=== PATIENT | female | born 1985 | race Caucasian/White ===

== ENCOUNTER 2017-06-08 19:03 | Inpatient (IN) ==
[2017-06-08] MEDS ORDERED: CARBOPROST 250 MCG/ML INJECTION IM PRN (19:15)
[2017-06-08] MEDS ORDERED: MAG-AL + SIM ORAL LIQUID 30ml PO PRN (19:15)
[2017-06-08] MEDS ORDERED: METHYLERGONOVINE 0.2 MG/ML INJECTION IM PRN (19:15)
[2017-06-08] MEDS ORDERED: ACETAMINOPHEN 500 MG TABLET PO PRN (19:15)
[2017-06-08] MEDS ORDERED: DINOPROSTONE 10 MG VAGINAL INSERT VG ONE (19:18)
[2017-06-08] MEDS ORDERED: TERBUTALINE 1 MG/ML VIAL SQ PRN (19:18)
[2017-06-08] MEDS ORDERED: ZOLPIDEM 5 MG TABLET PO PRN (19:34)
--- NOTE | 2017-06-08 19:39 | OB/GYN Progress Note ---
- Pain Control Pain control: Tolerating well - Pelvic Exam Dilation (cm): 1 Effacement (%): 50 station: -3 Amniotic membrane status: Intact - Contractions Monitor mode: None - Status status: Category l - Assessment and Plan Plan: continuous present management (Fb placed to for cervical ripening, Pitocin at 5 am, Q 12 PIH lab. )
[2017-06-08 20:25] VITALS: BMI 29.4
[2017-06-09] MEDS ORDERED: NALBUPHINE 10 MG/ML INJECTION IVP PRN (00:44)
[2017-06-09] MEDS: CALCIUM CARBONATE Chewable 500mg TABLET PO PRN ×2 (04:47→11:15)
[2017-06-09] MEDS ORDERED: OXYTOCIN DRIP 30 UNIT/500 ML ML IV PRN (05:13)
[2017-06-09] MEDS: D5LR 1,000 ML IV PRN ×2 (05:57→15:50)
[2017-06-09] MEDS: LR 1,000 ML IV PRN ×3 (05:57→16:11)
--- NOTE | 2017-06-09 07:04 | OB/GYN Progress Note ---
- Pelvic Exam Dilation (cm): 4 Effacement (%): 50 station: -3 Amniotic membrane status: Intact - Contractions Monitor mode: External Contraction pattern: Irregular Contraction intensity: Moderate - Status status: Category l - Assessment and Plan Assessment: induction ongoing Plan: continuous present management (PIH q 12 hours during labor. )
--- NOTE | 2017-06-09 07:14 | OB/GYN Progress Note ---
- Pelvic Exam Dilation (cm): 4 Effacement (%): 50 station: -3 Amniotic membrane status: Intact - Contractions Monitor mode: External Contraction pattern: Irregular Contraction intensity: Moderate - Status status: Category l - Assessment and Plan Plan: continuous present management (AROM clear fluid, IUPC placed tolerated by MOM and Fetus. )
[2017-06-09] MEDS ORDERED: ROPIVACAINE 1% 10MG/ML INJ 200 MG, SUFentanil 50 MCG in NS 100 ML EPI PRN (09:17)
[2017-06-09] MEDS ORDERED: NALOXONE 0.4 MG/ML INJECTION IVP PRN (09:17)
[2017-06-09] MEDS ORDERED: DiphenhydrAMINE 50 MG/ML INJECTION IVP PRN (09:17)
[2017-06-09] MEDS ORDERED: ONDANSETRON 4 MG/2 ML INJECTION IVP PRN (09:17)
--- NOTE | 2017-06-09 09:17 | Anesthesia Preoperative Report ---
Anesthesia Epidural/Spinal Rec - Date and Time Date: 06/09/17 Procedure: Labor Epidural Plan: Epidural - Vital Signs Vital Signs: Temperature 98.6 F 06/08/17 23:11 Pulse Rate 101 H 06/08/17 23:11 Respiratory Rate 16 06/08/17 23:11 Blood Pressure 140/90 H 06/08/17 23:11 /Para: P:0 - Medictaions & Allergies Inpatient Medications: Current Medications Acetaminophen (Tylenol) 500 - 1,000 mg PO Q4H PRN PRN Reason: Pain Al Hydroxide/Mg Hydroxide (Maalox Plus) 30 ml PO Q3H PRN PRN Reason: Indigestion Calcium Carbonate (Tums) 500 - 1,000 mg PO Q2H PRN PRN Reason: Indigestion Last Admin: 06/09/17 04:47 Dose: 1,000 mg Carboprost Tromethamine (Hemabate) 250 mcg IM O PRN PRN Reason: .Downtime Lactated Ringer's (Lactated Ringers) 1,000 mls @ 999 mls/hr IV .Q1H1M PRN Last Admin: 06/09/17 05:57 Dose: 999 mls/hr Dextrose/Lactated Ringer's (Dextrose 5%-Lactated Ringers) 1,000 mls @ 125 mls/ hr IV .Q8H PRN PRN Reason: Labor Last Admin: 06/09/17 05:57 Dose: 125 mls/hr Oxytocin (Pitocin Drip) 30 unit in 500 mls @ 2 mls/hr IV .Q24H PRN; Protocol PRN Reason: Induction/Augmentation Last Admin: 06/09/17 05:58 Dose: 2 mls/hr Methylergonovine Maleate (Methergine) 0.2 mg IM O PRN Misoprostol (Cytotec) 800 mcg LA ONCE PRN Nalbuphine HCl (Nubain) 10 mg IVP O PRN Last Admin: 06/09/17 00:54 Dose: 10 mg Zolpidem Tartrate (Ambien) 5 mg PO HS PRN PRN Reason: Insomnia Last Admin: 06/08/17 22:00 Dose: 5 mg Allergies/Adverse Reactions: Allergies Allergy/AdvReac Type Severity Reaction Status Date / Time codeine AdvReac Mild vomiting Verified 06/08/17 19:20 - Home Medications Home Medications: Home Medications Medication Instructions Recorded Confirmed Type Clobetasol Propionate [Clobetasol #0 02/07/16 History Propionate Micro] Folic Acid PO DAILY #0 tab 02/07/16 History Pnv95/Ferrous Fumarate/FA 1 tab PO DAILY #90 tab 02/07/16 History [ Tablet] - Medical History Respiratory: DENIES: Asthma Cardiovascular: Reports: Hypertension (preeclampsia) Gastrointestional: DENIES: Gastroesophageal Reflux Disease Renal/Endocrine: DENIES: Diabetes Mellitus Type 2 Other History: Reports: Now - Surgical History HEENT Surgeries: Reports: Other (wisdom teeth extraction) Reproductive Surgery/Treatment: Reports: Cervical Procedure (colposcopy 2009), Other (colposcopy 2008) DENIES: Section Anesthesia Reactions: None Hx Family Anesthesia Reaction: No History of Motion Sickness: No - Social History Smoking Status: Never smoker Second Hand Exposure: No Substance Use Type: does not use Alcohol Intake Frequency: does not drink - Pertinent Findings Lab Data: CBC and BMP 06/09/17 07:50 06/09/17 07:50 BMP 06/08/17 06/09/17 19:46 07:50 Sodium 137 136 Potassium 3.7 3.8 Chloride 106 105 Carbon Dioxide 21 L 22 BUN 11.0 10.0 Creatinine 0.5 L 0.5 L Glucose 108 98 Calcium 10.3 H 10.1 Liver Function 06/08/17 06/09/17 Range/Units 19:46 07:50 Total Bilirubin 0.30 0.20 (0.20-1.30) MG/DL AST 29 26 (14-36) U/L ALT 41 40 (9-52) U/L Alkaline Phosphatase 173 H 167 H (38-126) U/L Albumin 4.0 3.7 (3.5-5.0) G/DL Urine 06/08/17 Range/Units 19:46 Urine Color Yellow (YELLOW) Urine Clarity Sl cloudy Urine pH 7.0 (5.0-8.0) Ur Specific [place] 1.015 (1.015-1.025) Urine Protein Negative (NEGATIVE) Urine Glucose (UA) Negative (NEGATIVE) - Physical Exam Respiratory Exam: lungs clear, bilateral breath sounds equal Cardiovascular Exam: regular rate and rhythm - Airway Assessment Mallampati Score: II TMD: 3 Fingerbreadths Neck Extension: good Overall Assessment: no airway concerns - ASA ASA Score: 2 - Discussion Discussion: Discussed risks/options/alternatives of anesthesia and questions answered. Patient consents. Nursing pain assessment noted. Anesthesia Discussion: parent Attestation Statement: Prior to the delivery of any anesthetic medication, I examined the patient, developed the plan, obtained the patient's consent and discussed the risk and benefits of the procedure with the patient/guardian.
[2017-06-09] MEDS ORDERED: FAMOTIDINE PB 20 MG/50 ML BAG IV ONE (17:07)
[2017-06-09] MEDS ORDERED: CITRIC ACID/SODIUM CITRATE 30ml PO ONE (17:07)
[2017-06-09] MEDS ORDERED: CEFAZOLIN PREMIX (MC ONLY) 2 GM/50 ML BAG IV ONE (17:07)
[2017-06-09] MEDS ORDERED: AZITHROMYCIN IV 500 MG in NS 250ml 250 ML IV ONE (17:09)
[2017-06-09] MEDS: NOZIN NASAL SWAB NAS SCH ×2 (17:16→23:20)
[2017-06-09] MEDS ORDERED: LIDOCAINE 2%/EPI 1:200,000 20ml SDV PF ONE (17:30)
[2017-06-09] MEDS ORDERED: TRANEXAMIC ACID 1,000 MG in NS 100 ML IV ONE (17:51)
[2017-06-09] MEDS ORDERED: ONDANSETRON 4 MG/2 ML INJECTION ONE (17:53)
[2017-06-09] MEDS ORDERED: OXYTOCIN BOLUS BAG 30 UNIT/500 ML ML IV SCH (17:58)
[2017-06-09] MEDS ORDERED: MORPHINE SULFATE PF 5mg/10ml INJ (Duramorph) ONE (18:25)
[2017-06-09] MEDS ORDERED: DiphenhydrAMINE 25 MG CAPSULE PO PRN (18:33)
[2017-06-09] MEDS ORDERED: HYDROCORTISONE 2.5% CREAM 30gm RECTALLY PRN (18:33)
[2017-06-09] MEDS ORDERED: SIMETHICONE 80 MG CHEWABLE TABLET PO PRN (18:33)
[2017-06-09] MEDS ORDERED: D5LR 1,000 ML IV SCH (18:45)
[2017-06-09] MEDS ORDERED: OXYTOCIN DRIP 30 UNIT/500 ML ML IV SCH (18:45)
[2017-06-09] MEDS: IBUPROFEN 800 MG TABLET PO PRN (20:00)
[2017-06-09] MEDS: Oxycodone/Acetaminophen 5/325 1 TAB PO PRN (20:04)
[2017-06-09] MEDS: SIMETHICONE 80 MG CHEWABLE TABLET PO SCH (23:19)
[2017-06-10] MEDS: NOZIN NASAL SWAB NAS SCH ×2 (08:10→14:43)
[2017-06-10] MEDS: IBUPROFEN 800 MG TABLET PO PRN ×2 (08:11→19:35)
[2017-06-10] MEDS: DOCUSATE CALCIUM 240 MG CAPSULE PO SCH (08:11)
[2017-06-10] MEDS: SIMETHICONE 80 MG CHEWABLE TABLET PO SCH ×4 (08:11→19:31)
--- NOTE | 2017-06-10 08:51 | Operative Note ---
DATE: 06/09/2017 PREOPERATIVE DIAGNOSES 1. 32-year-old 1 at 37 weeks 2 days gestational age. 2. Mild preeclampsia. 3. Arrest of dilation and descent. POSTOPERATIVE DIAGNOSES 1. 32-year-old 1 at 37 weeks 2 days gestational age. 2. Mild preeclampsia. 3. Arrest of dilation and descent. PROCEDURE: Primary low transverse section. SURGEON: Mayra Miguel MD HAND TRIMMER: Fracisco Elizalde, Promotions Coordinator. ANESTHESIA: Epidural by Jeronimo Cain CRNA COMPLICATIONS: None. EBL: 1000 ml. FINDINGS Viable male , cephalic LOT position, clear fluids, Apgars 8/9, weight 3098 g, name undecided. Normal-appearing uterus, tubes and ovaries. INDICATIONS Ashwini was brought in last evening for Barrow bulb cervical ripening due to mild preeclampsia. This morning she was started on Pitocin. Her membranes were ruptured artificially returning clear fluids. An IUPC was placed to titrate the Pitocin. She received an epidural. The Pitocin was turned off at one point due to decelerations. The Pitocin was restarted later. At one point she was 9 and +1 almost +2 station. I was not able to reduce the cervix so she was allowed to continue laboring. Two and half hours later she had reverted back to 8 and +1 station. Her temperature was up to 99 and heart tones were starting to elevate. She was exhausted and requested a . DESCRIPTION OF PROCEDURE The patient was taken to the operating room where her epidural was brought up to adequate surgical levels. She already had a Barrow catheter in place. Her IUPC was removed. She was prepared and draped in the normal sterile fashion. A Pfannenstiel skin incision was made and carried down to the fascia. The fascia was incised in the midline and extended laterally with the Montes scissors. The fascia was elevated and the underlying rectus muscles were dissected off. The peritoneum was entered bluntly and extended superiorly and inferiorly with good visualization of the bladder. The bladder blade was inserted. A bladder flap was created sharply. The bladder blade was reinserted. The lower uterine segment was incised in a transverse fashion layer by layer with the scalpel and bluntly extended. The 's head was wedged in the pelvis and delivered atraumatically. The nose and mouth were suctioned. The cord was clamped and cut. The infant was handed to Dr. Rowland who was asked to attend due to the preeclampsia. The placenta delivered spontaneously. The uterus was exteriorized and cleared of all clots and debris. The uterine incision was closed with running locked 0-Monocryl. Hemostasis was obtained on the serosal edges with the cautery. The uterus was returned to the abdomen. The gutters were cleared of all clots and debris. The uterine incision was inspected one final time and still noted to be hemostatic. The peritoneum was closed with running 2-0 Vicryl. Hemostasis was obtained in the rectus muscles with cautery. The fascia was closed with running 0-Vicryl. Hemostasis was obtained in the subcutaneous tissue with the cautery. The skin was closed with 4-0 Vicryl in a subcuticular manner. Steri-Strips were placed. Sponge, sharp and instrument counts were correct. The patient tolerated the procedure well and was taken to the recovery room in good condition. JEROME
--- NOTE | 2017-06-10 11:13 | OB/GYN Progress Note ---
OB-PP Progress Note - General PPD1 POD:: POD1 Maternal Group B Strep: Negative Maternal blood type: O+ Maternal Rubella Status: Immune - Subjective Date: 06/10/17 Lochia: Minimal Pain: controlled Voiding: powell still in place Nausea or Vomiting Present: No - Objective Vital Signs: Last Vital Signs Temp 98.1 F 06/10/17 09:00 Pulse 99 06/10/17 09:00 Resp 16 06/10/17 09:00 BP 133/72 06/10/17 09:00 Pulse Ox 99 06/10/17 09:00 Urine Output: good General: alert and oriented Cardiovascular: regular rate,rhythm Respiratory: non-labored Abdomen: fundus firm Incision: normal, clean, dry, intact Extremities: non-tender Edema: none Laboratory: Laboratory Results - last 24 hr 06/09/17 22:58 WBC 27.5 H* D RBC 3.53 L Hgb 10.9 L D Hct 32.6 L D MCV 92.4 MCH 30.9 MCHC 33.4 RDW Std Deviation 42.9 Plt Count 188 MPV 12.1 - Assessment Assessment: SP, Primary C/S - Plan Plan: routine care
[2017-06-10] MEDS: CALCIUM CARBONATE Chewable 500mg TABLET PO PRN ×2 (13:12→18:04)
[2017-06-10] MEDS: Oxycodone/Acetaminophen 5/325 1 TAB PO PRN ×2 (16:32→19:31)
[2017-06-11] MEDS: SIMETHICONE 80 MG CHEWABLE TABLET PO SCH ×2 (00:14→09:01)
[2017-06-11] MEDS: Oxycodone/Acetaminophen 5/325 1 TAB PO PRN ×3 (00:14→13:49)
[2017-06-11] MEDS: NOZIN NASAL SWAB NAS SCH (00:22)
[2017-06-11 01:41] VITALS: O2SAT 99
[2017-06-11] MEDS: IBUPROFEN 800 MG TABLET PO PRN ×2 (05:28→13:49)
--- NOTE | 2017-06-11 08:16 | OB/GYN Progress Note ---
OB-PP Progress Note - General POD:: POD2 Maternal Group B Strep: Negative Maternal blood type: O+ Maternal Rubella Status: Immune - Subjective Date: 06/11/17 Lochia: Moderate Pain: controlled (Percocet working.) Voiding: voiding Nausea or Vomiting Present: No - Objective Vital Signs: Last Vital Signs Temp 98.0 F 06/11/17 05:30 Pulse 95 06/11/17 05:30 Resp 16 06/11/17 05:30 BP 136/81 06/11/17 05:30 Pulse Ox 99 06/11/17 00:09 Urine Output: good General: alert and oriented Cardiovascular: regular rate,rhythm Respiratory: non-labored Abdomen: fundus firm Incision: clean, dry, intact Extremities: non-tender - Assessment Assessment: Primary C/S - Plan Plan: routine care, discharge home (desires dismissal. )
[2017-06-11] MEDS: DOCUSATE CALCIUM 240 MG CAPSULE PO SCH (09:01)
[2017-06-11 13:56] VITALS: BP 132/80; PULSE 97; RESP 20; TEMP 98.2
== END 2017-06-11 13:56 | disposition home or self-care (01) | DRG 766 ==
LOC: MC 19:03
PROVIDERS: ADMIT Obstetrics & Gynecology; ATTEND Obstetrics & Gynecology